=== PATIENT | male | born 2005 | race Caucasian/White ===

== ENCOUNTER 2024-04-13 02:32 | Emergency (ER) | payer MEDICARE ==
[~2024-04-13] VITALS: Ht 177.8 cm; Wt 84.9 kg
[2024-04-13 02:36] VITALS: TEMP 98.1
[2024-04-13 02:58] LABS: BASO # 0.1 10^3/uL (0.0-0.2); EOS # 0.2 10^3/uL (0.0-0.5); EOS % 2.9 % (0.0-3.0); HEMATOCRIT 45.9 % (42.0-52.0); HEMOGLOBIN 16.1 g/dl (13.5-17.5); LYMPH # 2.2 10^3/uL (1.5-5.0); LYMPH % 37.5 % (24.0-44.0); MEAN CORPUSCULAR HEMOGLOBIN 30.3 pg (27.0-33.0); MEAN CORPUSCULAR HGB CONC 35.1 g/dl (32.0-36.5); MEAN CORPUSCULAR VOLUME 86.3 fl (80.0-96.0); MONO # 0.5 10^3/uL (0.0-0.8); MONO % 8.2 % (2.0-8.0); NEUTROPHILS # 2.9 10^3/uL (1.5-8.5); NEUTROPHILS % 49.7 % (36.0-66.0); PLATELET COUNT, AUTOMATED 236 10^3/uL (150-450); RED BLOOD COUNT 5.32 10^6/uL (4.30-6.10); WHITE BLOOD COUNT 5.8 10^3/uL (4.0-10.0)
[2024-04-13 03:34] LABS: CK-MB VALUE MASS < 1.0 NG/ML (<3.6)
[2024-04-13 03:36] LABS: BLOOD UREA NITROGEN 7 MG/DL (9-23); CALCIUM LEVEL 9.6 MG/DL (8.5-10.1); CARBON DIOXIDE LEVEL 29 MMOL/L (20-31); CHLORIDE LEVEL 107 MMOL/L (98-107); CREATININE FOR GFR 0.77 MG/DL (0.70-1.30); GLUCOSE, FASTING 84 MG/DL (60-100); SODIUM LEVEL 142 MMOL/L (136-145)
[2024-04-13 03:38] LABS: CPK CREATINE PHOSPHOKINASE 123 U/L (46-171); MB/CK RELATIVE INDEX 0.81 (< OR =4)
[2024-04-13 04:43] LABS: CK-MB VALUE MASS < 1.0 NG/ML (<3.6)
[2024-04-13 04:44] LABS: CPK CREATINE PHOSPHOKINASE 104 U/L (46-171); MB/CK RELATIVE INDEX 0.96 (< OR =4)
[2024-04-13 05:00] VITALS: BP 110/64; O2SAT 97
== END 2024-04-13 05:47 | disposition home or self-care (01) ==
LOC: M ED 02:32
DX: R07.9 Chest pain, unspecified (principal); R00.1 Bradycardia, unspecified